=== PATIENT | male | born 1975 | race Hispanic/Latino ===

== ENCOUNTER 2018-10-22 15:00 | Emergency (ER) | payer OTHER ==
[2018-10-22] MEDS ORDERED: ONDANSETRON HCL 4 MG/2 ML VIAL ONE (15:42)
[2018-10-22] MEDS ORDERED: MORPHINE SULFATE 4 MG/1ML SYG ONE (15:42)
[2018-10-22 15:47] LABS: BASOPHILS % (AUTO) 0.4 % (0.0-5.0); HEMATOCRIT 45.3 % (42-54); LYMPHOCYTES % (AUTO) 24.2 % (21.0-51.0); MEAN CORPUSCULAR HEMOGLOBIN 29.7 pg (27.0-33.0); MEAN CORPUSCULAR HGB CONC 33.5 g/dL (32.0-36.0); MEAN CORPUSCULAR VOLUME 88.7 fL (79-99); MONOCYTES % (AUTO) 9.6 % (3.0-13.0); NEUTROPHILS % (AUTO) 59.8 % (40.0-77.0); NUCLEATED RED BLOOD CELLS 0.1 % (0.0-0.19); PLATELET COUNT (AUTO) 237 K/uL (130-400)
[2018-10-22 15:48] LABS: APPEARANCE,URINE Clear (CLEAR); BILIRUBIN,URINE Negative (NEGATIVE); COLOR,URINE Yellow (YELLOW); GLUCOSE, URINE (UA) Negative (NEGATIVE); KETONES,URINE Negative (NEGATIVE); LEUKOCYTE ESTERASE ,URINE Negative (NEGATIVE); NITRATE,URINE Negative (NEGATIVE); OCCULT BLOOD,URINE Negative (NEGATIVE); PROTEIN,URINE Negative (NEGATIVE); UROBILINOGEN,URINE 0.2 mg/dL (0.2-1.0)
[2018-10-22 16:00] LABS: POTASSIUM 4.1 mmol/L (3.5-5.1)
[2018-10-22 16:03] LABS: ALBUMIN 3.4 g/dL (3.5-5.0); BILIRUBIN,DIRECT 0.1 mg/dL (0.0-0.3); BILIRUBIN,TOTAL 0.3 mg/dL (0.2-1.0); TOTAL PROTEIN, SERUM 7.6 g/dL (6.0-8.3)
[2018-10-22] MEDS ORDERED: IOHEXOL 350 MG/ML 100ML INFUS..BTL IV ONE (16:07)
== END 2018-10-22 17:58 | disposition home or self-care (01) ==
LOC: EDH 15:00
DX: S20.211A Contusion of right front wall of thorax, initial encounter (principal); R10.9 Unspecified abdominal pain; Z72.0 Tobacco use; V09.09XA Pedestrian injured in nontraffic accident involving other motor vehicles, initial encounter; Y93.89 Activity, other specified; Y92.89 Other specified places as the place of occurrence of the external cause; Y99.8 Other external cause status
CPT/HCPCS: 36415; 70450; 71260; 74177; 80048; 80076; 81003; 85025; 96374; 96375; 99285; J2270; J2405; Q9967

== ENCOUNTER 2022-10-07 16:15 | Emergency (ER) | payer OTHER ==
[~2022-10-07] VITALS: Ht 157.5 cm; Wt 113.4 kg
[~2022-10-07 16:15] MED LIST: DICY20TA2 PO; FAMO-136 PO
[2022-10-07 16:20] VITALS: BP 155/81
[2022-10-07] MEDS ORDERED: IBUP-2070 PO (17:57)
== END 2022-10-07 18:08 | disposition home or self-care (01) ==
LOC: EDH 16:15
DX: S46.811A Strain of other muscles, fascia and tendons at shoulder and upper arm level, right arm, initial encounter (principal); W17.89XA Other fall from one level to another, initial encounter; Y93.89 Activity, other specified; Y92.89 Other specified places as the place of occurrence of the external cause; Y99.8 Other external cause status; E11.9 Type 2 diabetes mellitus without complications; Z79.899 Other long term (current) drug therapy
CPT/HCPCS: 73030

== ENCOUNTER 2024-11-04 18:40 | Emergency (ER) | payer SELFPAY ==
[~2024-11-04] VITALS: Ht 167.6 cm; Wt 117.9 kg
[~2024-11-04 18:40] MED LIST changes: +IBUP-1492 PO
--- NOTE | 2024-11-04 18:56 | NUR ---
PT NOT IN LOBBY FOR ID BANDING
--- NOTE | 2024-11-04 19:09 | NUR ---
PT TO RADIOLOGY
--- NOTE | 2024-11-04 19:11 | ERN ---
ED Note History of Present Illness Stated Complaint: LACERATION TO RT 2ND FINGER Chief Complaint: Laceration/Avulsion Time Seen by MD: 18:51 Time Seen by Midlevel: 18:52 Dictation: 49-year-old male who presents to the emergency department due to reported having sustained a laceration to the 2nd digit of the right hand. He states that this occurred at his house and 1 hour prior to arrival. Patient states that he had his hand inside the shelf and upon extracting his hand he sustained the lac eration to the 2nd digit of the right hand. At this time, he rates his level of discomfort as an 8/10. Upon initial evaluation, the patient presents with controlled bleeding, normal neurovascular examination and no signs of tendon injury. Allergies: Coded Allergies: No Known Allergies (Unverified Allergy, Unknown, 07/23/22) No Known Drug Allergies (Unverified Allergy, Unknown, 10/22/18) Emergency Care SHEET ROCKER: None Home Meds Active Scripts Ibuprofen (Ibuprofen) 600 Mg Tablet, 600 MG PO Q6H PRN for PAIN, #30 TAB Prov:LETY RODRIGUEZ 10/07/22 Dicyclomine HCl (Bentyl) 20 Mg Tab, 20 MG PO QIDP, #28 TAB Prov:DANTE BRANTLEY 02/01/21 Famotidine (Pepcid) 20 Mg Tablet, 20 MG PO BID, #60 TAB Prov:DANTE BRANTLEY 02/01/21 Past Medical History Past Medical History: Diabetes-Type II, Hypertension Surgical History: Other Surgical History Other: HEAD PSYCH History: no pertinent psych hx RN Note Reviewed/Agreed w/PFSH: Yes Review of System Dictation MS/Extremity: Pain to the 2nd digit of the right hand Skin: Laceration to the 2nd digit of the right hand. Initial Vital Sign VS Vital Signs Date Time Temp Pulse Resp B/P (MAP) Pulse Ox O2 Delivery O2 Flow Rate FiO2 11/04/24 18:41 98.1 75 16 156/73 97 Room Air Physical Exam Dictation General: awake, alert, NAD Head/Face: Normocephalic, atraumatic Eyes: PERRL, EOMI ENT: Oral mucosa moist Neck: Trachea midline, supple Cardiovascular: RRR, no edema Respiratory: Symmetrical, non-labored Abdomen: Soft, non-tender, non-distended, no guarding. Skin: Warm, dry, good turgor, 3.5 cm subcutaneous avulsion laceration to the 2nd digit along the palmar aspect of the right hand. MS/Extremity: Pulses equal, no cyanosis, neurovascular intact, FROM, Neuro: COAx4, GCS 15, steady gait, Psych: Normal behavior, mood, and affect normal Results (Laboratory/Radiology) X-RAY Comment: Three-view x-ray of the fingers of the right hand with no cortical anomalies or deformities along with no radiopaque foreign object as interpreted by me. ED Course ED Course Orders Procedure Category Date Status Time Finger(S) 2+Vws Rt RAD 11/04/24 Taken 18:59 Acetaminophen 500mg PHA 11/04/24 Complete Tab (Tylenol 500mg T 19:00 Wound Care (Er) CPOE 11/04/24 Transmitted 18:59 Laceration Tray Set CPOE 11/04/24 Transmitted Up (Er) 18:59 Lidocaine Hcl 1% 20ml PHA 11/04/24 Complete Vial (Lidocaine Hc 19:10 Current Medications Medications (Trade) Dose Ordered Sig/Tan Route PRN Reason Start Time Stop Time Status Last Admin Dose Admin Acetaminophen (TYLenol 500MG TAB) 1,000 mg ONCE ONCE PO 11/04/24 19:00 11/04/24 19:03 DC Lidocaine HCl (Lidocaine HCl 1% 20ml Vial) 20 ml STK-MED ONCE .ROUTE 11/04/24 19:10 11/04/24 19:10 DC Vital Signs Date Time Temp Pulse Resp B/P (MAP) Pulse Ox O2 Delivery O2 Flow Rate FiO2 11/04/24 18:41 98.1 75 16 156/73 97 Room Air Medical Decision Making MDM MDM: Differential diagnosis: Finger laceration, finger abrasion, phalanx fracture. Rationale: Tests considered and ordered secondary to shared decision making include: Previous outside records reviewed: Old ER visits. Risk of complication and/or morbidity or mortality of patient management: None Medications-Per medication reconciliation Need for hospitalization: Patient does not meet criteria for hospitalization. Need for emergency major/minor surgery: No There are no social concerns with this patient. Prescription drug management Prescriptions will include symptomatic care Patient's prior external medical records from other ER visits were reviewed by me as indicated. Prior testing and results from previous visits were reviewed. Prior tests were taken into account with medical decision making and resource utilization, independent historian/historians were used to obtain complete medical history. I independently interpreted the test that were performed, results were reviewed by me and considered findings on radiology if ordered. Medical management and examination interpretation discussions were had by me with other qualified healthcare professionals as indicated for the patient's care. Procedure Wound Location: upper extremity Wound Length (cm): 3 Wound's Depth, Shape: irregular, flap Wound Explored: clean Irrigated w/ Saline (ccs): 200 Anesthesia: 1% Lidocaine Volume Anesthetic (ccs): 6 Wound Debrided: minimal Wound Repaired With: sutures Suture Size/Type: 4:0 Number of Sutures: 7 DX & DISP Disposition: Discharge Departure Impression: Primary Impression: Laceration of finger of right hand Condition: Stable Scripts Cephalexin (Cephalexin) 500 Mg Tablet 1 TAB PO BID for 3 Days, #6 TAB 0 Refills Prov: NENO ALMONTE 11/04/24 Referrals: SELF,REFERRAL (PCP) Time of Disposition: 19:44 NENO ALMONTE Nov 04, 2024 19:11
--- NOTE | 2024-11-04 19:24 | NUR ---
PROVIDER AT BEDSIDE, LACERATION REPAIR
[2024-11-04] MEDS: LIDOCAINE HCL 1% 20 ML VIAL ONE (19:41)
[2024-11-04] MEDS ORDERED: CEPH500T PO (19:44)
--- NOTE | 2024-11-04 19:51 | HMCIMG ---
EXAM: CR right Finger, 3 View. CLINICAL HISTORY: pain COMPARISON: None provided. FINDINGS: BONES: No acute fracture or aggressive appearing osseous lesion. JOINTS: No dislocation. The joint spaces are normal. SOFT TISSUES: Distal index finger laceration and soft tissue edema. No radiopaque foreign bodies identified. IMPRESSION: 1. Distal index finger laceration and soft tissue edema. 2. No acute osseous injury. /Fisher
[2024-11-04 19:55] VITALS: BP 148/72; PULSE 72; RESP 18; TEMP 98; O2SAT 97
== END 2024-11-04 19:55 | disposition home or self-care (01) ==
LOC: EDH 18:40
DX: S61.210A Laceration without foreign body of right index finger without damage to nail, initial encounter (principal); E11.9 Type 2 diabetes mellitus without complications; I10 Essential (primary) hypertension; Z79.899 Other long term (current) drug therapy; X58.XXXA Exposure to other specified factors, initial encounter; Y93.89 Activity, other specified; Y92.89 Other specified places as the place of occurrence of the external cause; Y99.8 Other external cause status
CPT/HCPCS: 12002; 73140; 99283